=== PATIENT | female | born 1950 | race Caucasian/White ===

== ENCOUNTER 2017-05-14 22:07 | Emergency (ER) | payer OTHER ==
[2017-05-14 22:25] VITALS: TEMP 98.4; O2SAT 97
--- NOTE | 2017-05-14 22:40 | EDPHY ---
H & P Stated Complaint: c/o pain/swelling in L foot x 1, recent stoppage of colchicine Time Seen by Provider: 05/14/17 22:39 HPI/ROS: HPI: This is a 66-year-old female presents with Chief Complaint: c/o pain/swelling in L foot x 1, recent stoppage of colchicine Location: Left ankle/foot Quality: Pain Duration: Today Signs and Symptoms: No bleeding, no radiation, no numbness, no weakness, no tingling, no decreased range of motion, + swelling, + pain Timing: Acute on chronic Severity: Moderate to severe Context: Patient has a history of psoriatic arthritis/ pseudogout, followed by Rheumatology at [facility] in [facility], managed appoint with Humira and more recently with colchicine 0.6 mg daily. Her last dose was approximately 5 days ago. It was discontinued secondary to diarrhea. Patient reports that she is here in [facility] for the next 10 days indication. Today she woke up and noticed that her left ankle and foot were swelling with moderate to severe pain no similar to her other flares of psoriatic arthritis/pseudogout. Patient reports that she has had multiple laboratory test/aspiration synovial analysis/x -ray imaging in the past. She denies any recent injury/overuse/trauma/ paresthesias. Patient reports appearance of left ankle and foot are similar to prior flares. Denies redness/warmth/fevers. Has had labs drawn within the last 1 month and normal renal function per patient. Modifying Factors: None Comment: ROS: see HPI Constitutional: No fever, no chills, no weight loss Eyes: No blurred vision Respiratory: No shortness of breath, no cough Cardiovascular: No chest pain Gastrointestinal: No nausea, no vomiting no diarrhea Genitourinary: No dysuria Extremities: No myalgias Neurologic: No weakness, no numbness Skin: No rashes Hematologic: No bruising, no bleeding MEDICAL/SURGICAL/SOCIAL HISTORY: Medical history: vertigo, R hip replacement, psoriatic arthritis/scoriatic gout (?), surg L ankle, hyperlipidemia, metabolic syndrome Surgical history: Denies Social history: CONSTITUTIONAL: Pleasant elderly conscious extremely well-appearing white female, at bedside awake and alert, no obvious distress HEENT: Atraumatic and normocephalic, PERRL, EOMI. Tympanic membranes clear. Oropharynx clear, no exudate and moist pink mucosa. Airway patent. No lymphadenopathy. No meningismus. Cardiovascular: Normal S1/S2, regular rate, regular rhythm, without murmur rub or gallop. PULMONARY/CHEST: Symmetrical and nontender. Clear to auscultation bilaterally. Good air movement. No accessory muscle usage. ABDOMEN: Soft, nondistended, nontender, no rebound, no guarding, no peritoneal signs, no masses or organomegaly. No CVAT. EXTREMITIES: 2/2 DP and PT pulses, strength 5/5, left Ankle; Plantar flexion to 50, dorsiflexion to 20. Foot inversion to 35 degree. No ligament tenderness and swelling. Lateral and medial malleolus deformity noted. Achilles tendon intact. no deformities, no clubbing, no cyanosis or edema. NEUROLOGICAL: no focal neuro deficits. GCS 15. SKIN: Warm and dry, no erythema. no rash. Good capillary refill. Source: Patient, Family () Exam Limitations: No limitations - Medical/Surgical History Hx Asthma: No Hx Chronic Respiratory Disease: No Hx Diabetes: No Hx Cardiac Disease: Yes Hx Renal Disease: No Hx Cirrhosis: No Hx Alcoholism: No Hx HIV/AIDS: No Hx Splenectomy or Spleen Trauma: No Other PMH: vertigo, R hip replacement, scoriatic arthritis/scoriatic gout(?), surg L ankle, hyperlipidemia, metabolic syndrome - Social History Smoking Status: Never smoked Constitutional: Initial Vital Signs Temperature (C) 36.9 C 05/14/17 22:15 Heart Rate 95 05/14/17 22:15 Respiratory Rate 18 05/14/17 22:15 Blood Pressure 162/105 H 05/14/17 22:15 O2 Sat (%) 97 05/14/17 22:15 O2 Delivery Mode Room Air Allergies/Adverse Reactions: codeine Allergy (Verified 05/14/17 22:26) onion Allergy (Verified 05/14/17 22:26) Home Medications: Medication Instructions Recorded Lipitor 10 mg (RX) 11/07/14 Synthroid 11/07/14 Colchicine [Colchicine (*)] 0.6 mg PO DAILY #6 tab 05/14/17 Cosentyx Pen 05/14/17 Folic Acid 05/14/17 Leucovorin 05/14/17 Metformin HCl 05/14/17 Methotrexate 05/14/17 oxyCODONE/APAP 5/325 [Percocet 1 - 2 tab PO Q4H PRN #10 tab 05/14/17 5/325 (*)] Medical Decision Making ED Course/Re-evaluation: Patient given colchicine 1.2 mg, IV morphine 4 mg and IV Decadron Patient and patient's politely declined labs or x-ray images as recently performed No signs of neurovascular compromise/tenting of skin/compartment syndrome/ extremities and joints examined above and below area of concern and are neurovascularly intact/cellulitis/septic arthritis. Given crutches; weight-bearing status as tolerated; JOSEPH Reassessed pain level with moderate relief This patient was seen under the supervision of my secondary supervising physician. I evaluated care for this patient independently. Discussed this patient with Dr. Harper who did not see the patient. Differential Diagnosis: Differential diagnosis includes but is not limited to cellulitis, tenosynovitis , abscess, psoriatic arthritis. - Data Points Medications Given: Discontinued Medications Colchicine (Colchicine) 1.2 mg PO EDNOW ONE Stop: 05/14/17 23:01 Last Admin: 05/14/17 23:01 Dose: 1.2 mg Dexamethasone (Decadron Injection) 8 mg IVP EDNOW ONE Stop: 05/14/17 23:00 Last Admin: 05/14/17 23:00 Dose: 8 mg Morphine Sulfate (Morphine) 4 mg IVP EDNOW ONE Stop: 05/14/17 23:00 Last Admin: 05/14/17 23:01 Dose: 4 mg Departure - Departure Disposition: Home, Routine, Self-Care Clinical Impression: Has run out of medications, Psoriatic arthritis Condition: Good Instructions: Arthritis (ED) Additional Instructions: Use crutches to aid ambulation and slowly advance weight-bearing status as tolerated. Follow-up with Rheumatology once you return to [place]. You may take colchicine 0.6 mg daily as needed for flare. Take Percocet every 4-6 hours as needed for severe/breakthrough pain. Referrals: GABI BENITEZ [Other] - As per Instructions Prescriptions: Colchicine [Colchicine (*)] 0.6 mg PO DAILY #6 tab oxyCODONE/APAP 5/325 [Percocet 5/325 (*)] 1 - 2 tab PO Q4H PRN #10 tab PRN Reason: Pain, Severe
[2017-05-14] MEDS ORDERED: DEXAMETHASONE 10 MG/ML VIAL ONE (22:51)
[2017-05-14] MEDS ORDERED: DEXAMETHASONE 4 MG/ML VIAL IVP ONE (22:59)
[2017-05-14] MEDS ORDERED: COLCHICINE 0.6 MG CAP/TAB PO ONE (23:00)
[2017-05-14] MEDS ORDERED: HYDROCOD/APAP 5/325 PREPACK#6 BTL TAKEHOME ONE (23:28)
[2017-05-14] MEDS ORDERED: ONDANSETRON DISINTEGRATING 4 MG TAB ONE (23:42)
[2017-05-14] MEDS ORDERED: ONDANSETRON 4MG PREPACK#2 BTL TAKEHOME ONE ×2 (23:42→23:43)
[2017-05-14] MEDS ORDERED: ONDANSETRON DISINTEGRATING 4 MG TAB PO ONE (23:43)
[2017-05-15 00:12] VITALS: BP 148/96; PULSE 92; RESP 16
== END 2017-05-15 00:10 | disposition home or self-care (01) ==
DX: L40.50 Arthropathic psoriasis, unspecified (principal); Z76.0 Encounter for issue of repeat prescription
CPT/HCPCS: 96374; J1100